=== PATIENT | male | born 1950 | race Caucasian/White ===

== ENCOUNTER 2020-03-19 08:32 | Outpatient (CLI) | payer MEDICARE, OTHER, SELFPAY ==
--- NOTE | ~2020-03-19 | CT_ITS ---
EXAMINATION: CT abdomen pelvis w con DATE: 03/19/2020 09:22 INDICATION: Malignant prostate neoplasm TECHNIQUE: Computed tomography (CT) of the abdomen and pelvis was performed without intravenous contr ast. Automated exposure control and iterative reconstruction technique were employed. Exam dose: 516 .58 mGy-cm total exam DLP. COMPARISON: None. FINDINGS: Bilateral lower lobe discoid atelectasis and/or scarring. No consolidation at the lung base s. Coronary artery atherosclerosis. Heart size is within normal range. No pericardial or pleural effusio n. There are scattered occasional very small hepatic hypoattenuating lesions, statistically most likely small hepatic cysts. The liver, gallbladder, bile duct, spleen, pancreas and pancreatic duct are othe rwise unremarkable. Normal morphology of the adrenal glands. Approximately 8 mm lower pole right renal cyst. No urinary tract calculus or hydroureteronephrosis. There is extensive atherosclerotic calcification of the abdominal aorta but no aneurysm. There is pro minent calcification of the iliac arteries as well as femoral artery calcifications. No intraperitoneal or retroperitoneal or pelvic mass lesion or adenopathy or ascites. There is prostate enlargement and calcification. The urinary bladder is distended. Normal appendix. There are numerous diverticula of the left colon; no CT evidence of diverticulitis. There is a prominent amount fecal material within the colon but no bowel obstruction or intraperitone al free air. Diffuse idiopathic skeletal hyperostosis of the lower thoracic spine. Diffuse osteopenia. No suspicious osteolytic or osteoblastic lesions are identified. . IMPRESSION: Bilateral lower lobe discoid atelectasis and/or scarring Probable small hepatic cysts 8 mm lower pole right renal cyst Prostate enlargement and calcification Diverticulosis of the colon Prostate enlargement and calcifications; history of prostate cancer. No osteoblastic metastatic disea se or pelvic or abdominal lymphadenopathy is noted Reviewed, dictated and finalized at [facility]. Reviewed, dictated and finalized at location A. IMPRESSION: Bilateral lower lobe discoid atelectasis and/or scarring Probable small hepatic cysts 8 mm lower pole right renal cyst Prostate enlargement and calcification Diverticulosis of the colon Prostate enlargement and calcifications; history of prostate cancer. No osteobl astic metastatic disease or pelvic or abdominal lymphadenopathy is noted
--- NOTE | ~2020-03-19 | NM_ITS ---
EXAMINATION: NM bone scan whole body DATE: 03/19/2020 13:08 INDICATION: Malignant neoplasm of the prostate TECHNIQUE: 25.2 mCi Tc-99m HDP was administered intravenously. Delayed whole-body scintigrams were o btained. COMPARISON: Chest radiograph and CT abdomen and pelvis dated 03/19/2020 FINDINGS: Mild joint centered uptake at the bilateral acromioclavicular and sternoclavicular joints as well as at the knees. The dose of mild increased uptake at the inferior sternocostal margin with correspondin g mild hypertrophic change at this location on the CT images. No suspicious foci of abnormal bone upt emelina to suggest osseous metastatic disease. Large amount of postvoid residual activity in the bladder. IMPRESSION: 1. No evident osseous metastatic disease. 2. Large post void residual bladder volume. Reviewed, dictated and finalized at location A.
--- NOTE | ~2020-03-19 | XR_ITS ---
XR chest 2V DATE: 03/19/2020 09:01 INDICATION: Malignant neoplasm of prostate gland TECHNIQUE: PA and lateral views COMPARISON: 07/11/2005 PA and lateral chest FINDINGS: Normal heart size. Aortic calcification. No hilar or mediastinal enlargement. Moderate bilateral hyperinflation. No pulmonary infiltrate or consolidation is evident. An approximat halima 2.5 cm mass density is suggested in the right apex, new since 07/21/2005; CT thorax is recommended for further evaluation for possible right apical pulmonary malignancy. Normal heart size. Aortic arch calcification. No hilar or mediastinal enlargement is evident. No pleu ral effusion or pulmonary vascular congestion or pneumothorax. Diffuse osteopenia. Degenerative changes of the thoracic spine. IMPRESSION: Approximately 2.5 cm right apical mass density, suggesting possible right apical pulmonar y malignancy; CT thorax examination is recommended. Dr. Ordaz telephoned the chest radiograph findings, including right apical mass density suggesting cristine g [facility] office on March 19, 2020 at 0910 hours. Reviewed, dictated and finalized at location A. IMPRESSION: Approximately 2.5 cm right apical mass density, suggesting possible right apical pulmonary malignancy; CT thorax examination is recommended. Dr. Ordaz telephoned the chest radiograph findings, including right apical mass density [facility] lung [facility] office on March 19, 2020 at 0910 hours.
[2020-03-19 09:11] LABS: Estimated Glomerular Filt Rate > 60
== END 2020-03-19 08:33 | disposition home or self-care (01) ==
PROVIDERS: PCP Family Medicine; Visit Provider Urology
DX: C61 Malignant neoplasm of prostate (principal); R91.8 Other nonspecific abnormal finding of lung field; N28.1 Cyst of kidney, acquired; N40.0 Benign prostatic hyperplasia without lower urinary tract symptoms; K57.90 Diverticulosis of intestine, part unspecified, without perforation or abscess without bleeding
CPT/HCPCS: 36415; 71046; 74177; 78306; A9561; Q9967

== ENCOUNTER 2020-04-05 10:09 | Outpatient (CLI) | payer MEDICARE, OTHER, SELFPAY ==
--- NOTE | ~2020-04-05 | CT_ITS ---
EXAMINATION: CT chest wo con DATE: 04/05/2020 10:41 INDICATION: ABNORMALITY OF LUNG ON CXR TECHNIQUE: Computed tomography (CT) of the chest was performed without intravenous contrast. Addition al 3D reconstructions utilizing coronal maximum intensity projection (MIP) were performed. Automated exposure control and iterative reconstruction technique were employed. The dose-length product was 21 5.35 mGy-cm. COMPARISON: Chest radiograph dated 03/19/2020 FINDINGS: Mild to moderate emphysema. There is a 3.4 x 2.4 x 1.5 cm pleural-based mass at the right apex corres ponding to the opacity on the prior radiographs which is concerning for malignancy. Linear discoid at electasis/scarring in the bilateral lower lobes. Suture line at the posterolateral margin of the righ t apex. No pneumonia, pulmonary edema or pleural effusion. Heart size is normal. Atherosclerotic sophia nary artery calcifications no pericardial effusion. Calcified right hilar lymph nodes consistent with old granulomatous disease. No pathologically enlarged thoracic lymphadenopathy. Atherosclerotic calc ifications along the normal caliber thoracic aorta. Mild bilateral gynecomastia. There are bridging o steophytes at multiple levels in the spine, consistent with diffuse idiopathic skeletal hyperostosis (DISH). IMPRESSION: 1. 3.4 x 2.4 x 1.5 cm pleural-based mass at the right apex which is concerning for malignancy. Given the presence of an adjacent suture line the differential would also include pleural-parenchymal scarr ing. Recommend correlation with any prior outside imaging. Could consider either further evaluation w ith PET/CT or CT-guided percutaneous biopsy. 2. Mild to moderate emphysema. Reviewed, dictated and finalized at location A. IMPRESSION: 1. 3.4 x 2.4 x 1.5 cm pleural-based mass at the right apex which is concerning for malignancy. Given the presence of an adjacent suture line the differential would also include pleural-parenchymal scarring. Recommend correlation with any prior outside imaging. Could consider either further evaluation with PET/CT or CT-guided percutaneous biopsy. 2. Mild to moderate emphysema.
== END 2020-04-05 10:10 | disposition home or self-care (01) ==
PROVIDERS: PCP Family Medicine; Visit Provider Urology
DX: R91.8 Other nonspecific abnormal finding of lung field (principal); J43.9 Emphysema, unspecified
CPT/HCPCS: 71250

== ENCOUNTER 2020-04-26 08:59 | Outpatient (CLI) | payer MEDICARE, OTHER, SELFPAY ==
[2020-04-19 11:28] VITALS: BMI 23.7
[2020-04-26] VITALS (11 sets, daily range): BP systolic 122–146; BP diastolic 57–74; PULSE 49–59; RESP 12–18; O2SAT 96–100
--- NOTE | ~2020-04-26 | XR_ITS ---
EXAMINATION: XR chest 1V DATE: 04/26/2020 11:56 INDICATION: Status post percutaneous biopsy of a right apical mass. TECHNIQUE: frontal and lateral views of the chest were obtained. COMPARISON: Chest radiograph dated 03/19/2020 FINDINGS: Again seen is a mass at the right apex which remains concerning for malignancy. No other airspace opa cities, pulmonary edema, pleural effusion or pneumothorax. The cardiomediastinal silhouette is normal . IMPRESSION: 1. No pneumothorax or other acute cardiopulmonary disease post biopsy of a right apical mass concerni ng for malignancy. Reviewed, dictated and finalized at location A. IMPRESSION: 1. No pneumothorax or other acute cardiopulmonary disease post biopsy of a righ t apical mass concerning for malignancy.
--- NOTE | ~2020-04-26 | CT_ITS ---
EXAMINATION: CT biopsy lung DATE: 04/26/2020 12:10 INDICATION: Right apical mass. TECHNIQUE: The procedure including the risks and benefits was discussed with the patient. Risks discu ssed included infection, approximately 1/20 risk of symptomatic hemorrhage beyond mild hemoptysis, ap proximately 1/3 risk of pneumothorax, and approximately 1/10 risk of pneumothorax severe enough to wa rrant chest tube placement. The patient understood the risks and agreed to proceed. The patient was p laced prone. The skin overlying the posterior right apex was prepped and draped in sterile fashion. Anesthetic was administered with 1% lidocaine subcutaneously. A 19 gauge outer needle was advanced under CT guidance to the lesion of interest. A 20 gauge core biopsy needle was then used to obtain 4 core biopsy specimens. The needle was removed and the entry site was cleaned and dressed. There were no immediate complications. The dose-length product was 156.63 mGy-cm. FINDINGS: CT images demonstrate the outer needle tip adjacent to a 3.3 x 2.0 cm mass at the right ape x. . IMPRESSION: 1. Successful CT-guided biopsy of a 3.3 x 2.0 cm right apical mass. Reviewed, dictated and finalized at location A.
--- NOTE | ~2020-04-26 | XR_ITS ---
EXAMINATION: XR chest 1V portable DATE: 04/26/2020 12:51 INDICATION: One hour post percutaneous biopsy of a right apical mass. TECHNIQUE: frontal view of the chest was obtained. COMPARISON: Chest radiograph dated 04/26/2020 at 11:53 AM FINDINGS: Right apical mass which remains concerning for malignancy. No other airspace opacities, pulmonary brandi ma, pleural effusion or pneumothorax. The cardiomediastinal silhouette is normal. Likely coronary art kaylan stenting. IMPRESSION: 1. No pneumothorax or other acute cardiopulmonary disease post biopsy of a right apical mass which re ray concerning for malignancy. Reviewed, dictated and finalized at location A. IMPRESSION: 1. No pneumothorax or other acute cardiopulmonary disease post biopsy of a righ t apical mass which remains concerning for malignancy.
--- NOTE | ~2020-04-26 | XR_ITS ---
EXAMINATION: XR chest 1V portable DATE: 04/26/2020 14:51 INDICATION: Status post percutaneous biopsy of a right upper lobe nodule. TECHNIQUE: frontal view of the chest was obtained. COMPARISON: Chest radiograph dated earlier studies on 04/26/2020 FINDINGS: Again seen is a right apical mass concerning for primary bronchogenic carcinoma. No new airspace opac ities, pulmonary edema, pleural effusion or pneumothorax. The cardiomediastinal silhouette is normal. Likely coronary artery stenting. IMPRESSION: 1. No pneumothorax or other acute cardiopulmonary disease post biopsy of a right apical mass which re ray concerning for primary bronchogenic carcinoma. Reviewed, dictated and finalized at location A. IMPRESSION: 1. No pneumothorax or other acute cardiopulmonary disease post biopsy of a righ t apical mass which remains concerning for primary bronchogenic carcinoma.
[2020-04-26 09:34] LABS: Mean Platelet Volume 10.4 fl (7.4-10.4); Platelet Count Result 194 k/mm3 (150-375)
[2020-04-26 09:47] LABS: Prothrombin Time 12.9 Seconds (11.1-14.7)
== END 2020-04-26 15:25 | disposition home or self-care (01) ==
PROVIDERS: Radiology Diagnostic Radiology; PCP Family Medicine; Visit Provider Urology
DX: R91.1 Solitary pulmonary nodule (principal)
CPT/HCPCS: 32405; 36415; 71045; 77012; 85049; 85610; 88305; 88342

== ENCOUNTER → 2020-05-14 12:16 | Outpatient (CLI) | payer MEDICARE, OTHER, SELFPAY ==
--- NOTE | ~2020-05-14 | MR_ITS ---
EXAMINATION: MR brain/brain stem wo/w con DATE: 05/14/2020 13:06 INDICATION: Malignant neoplasm of the upper lobe of right lung. TECHNIQUE: Magnetic resonance imaging (MRI) of the brain and brainstem was performed without and with 15 mL MultiHance intravenous contrast. Sequences included sagittal and axial T1-weighted FSE, axial diffusion-weighted FS EPI, axial T2*-weighted GRE, axial T2-weighted FLAIR Propeller, and axial T2-we ighted Propeller. Postcontrast sequences included axial, sagittal, and coronal T1-weighted FSE. Appar ent diffusion coefficient (ADC) maps were created. COMPARISON: None. FINDINGS: There are scattered areas of nonspecific increased T2-weighted signal intensity in the cere bral white matter, which is within normal limits for the patient's age. There is no intracranial hemo rrhage, acute infarction, or abnormal intracranial mass lesion. The ventricles are normal in size. Th e orbits are normal. There is mild mucosal thickening in the ethmoid sinuses. There is a trace left m astoid effusion. IMPRESSION: 1. Normal aging brain. No evidence of metastatic disease. Reviewed, dictated and finalized at location A.
[2020-05-14 12:49] LABS: Estimated Glomerular Filt Rate > 60
== END ==
PROVIDERS: PCP Family Medicine; Visit Provider Internal Medicine Medical Oncology
DX: C34.11 Malignant neoplasm of upper lobe, right bronchus or lung (principal)
CPT/HCPCS: 36415; 70553; A9577

== ENCOUNTER 2020-08-16 09:56 | Outpatient (CLI) | payer MEDICARE, OTHER, SELFPAY ==
--- NOTE | ~2020-08-16 | CT_ITS ---
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 The dose-length product (DLP) was 209.80 mGy-cm. Ite rative reconstruction was used. COMPARISON: 04/05/2020 FINDINGS: There has been interval decrease in size of a right apical lung mass which now measures 2.1 x 1.5 cm, previously 3.4 x 2.1 cm. There is mild to moderate emphysema. No new pulmonary nodules are identified. There is no pleural effusion or pneumothorax. There is atelectasis of the lower lobes. N o pathologically enlarged thoracic lymph nodes are identified. The heart size is normal. Mild bilater al gynecomastia is noted. There are bridging osteophytes at multiple levels in the spine, consistent with diffuse idiopathic skeletal hyperostosis (DISH). IMPRESSION: 1. Right apical lung mass with interval decrease in size, consistent with treatment response. Reviewed, dictated and finalized at location A. IMPRESSION: 1. Right apical lung mass with interval decrease in size, consistent with treat ment response.
[2020-08-16 10:31] LABS: Estimated Glomerular Filt Rate > 60
== END 2020-08-16 09:57 | disposition home or self-care (01) ==
PROVIDERS: PCP Family Medicine; Visit Provider Internal Medicine Medical Oncology
DX: C34.11 Malignant neoplasm of upper lobe, right bronchus or lung (principal)
CPT/HCPCS: 71260; Q9967

== ENCOUNTER 2020-11-12 10:02 | Outpatient (CLI) | payer MEDICARE, OTHER, SELFPAY ==
--- NOTE | ~2020-11-12 | CT_ITS ---
EXAMINATION: CT chest w con DATE: 11/12/2020 10:37 INDICATION: Malignant neoplasm of the right lung TECHNIQUE: Transaxial computed tomographic images of the chest were obtained after the administration of 75 cc of Omnipaque 350 intravenous contrast. The dose-length product (DLP) was 08/16/2020 mGy-cm. Iterative reconstruction was used. COMPARISON: 08/16/2020 FINDINGS: The previously described right apical lung nodule is somewhat difficult to discriminate fro m apical pleural thickening but appears to decreased in size measuring approximately 1.8 x 1.3 cm, pr eviously 2.1 x 1.5 cm. No new pulmonary nodules are identified. There is no pleural effusion or pneum othorax. There is moderate emphysema. Areas of chronic atelectasis are noted in the lower lobes. The lungs are free of acute opacities. There is no pleural effusion or pneumothorax. No pathologically en larged thoracic lymph nodes are identified. The heart size is normal. There is mild bilateral gynecom astia. IMPRESSION: 1. Right apical lung nodule with apparent interval decrease in size, consistent with treatment respon se. Reviewed, dictated and finalized at location A. 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 Right apical lung nodule with apparent interval decrease in size, consistent with treatment response.
[2020-11-12 10:28] LABS: Estimated Glomerular Filt Rate > 60
== END 2020-11-12 10:03 | disposition home or self-care (01) ==
PROVIDERS: PCP Family Medicine; Visit Provider Internal Medicine Medical Oncology
DX: C34.11 Malignant neoplasm of upper lobe, right bronchus or lung (principal)
CPT/HCPCS: 71260; Q9967

== ENCOUNTER → 2020-11-21 10:20 | Outpatient (CLI) | payer MEDICARE, OTHER, SELFPAY ==
--- NOTE | ~2020-11-21 | MR_ITS ---
EXAMINATION: MR brain/brain stem wo/w con DATE: 11/21/2020 11:15 INDICATION: Lung cancer. TECHNIQUE: Magnetic resonance imaging (MRI) of the brain and brainstem was performed without and with 15 mL MultiHance intravenous contrast. Sequences included sagittal and axial T1-weighted FSE, axial diffusion-weighted FS EPI, axial T2*-weighted GRE, axial T2-weighted FLAIR Propeller, and axial T2-we ighted Propeller. Postcontrast sequences included axial, sagittal, and coronal T1-weighted FSE. Appar ent diffusion coefficient (ADC) maps were created. COMPARISON: Brain MRI 05/14/2020 FINDINGS: There are scattered areas of nonspecific increased T2-weighted signal intensity in the cere bral white matter, which is within normal limits for the patient's age. 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 There is no intracranial hemorrhage, acute infarction, or abnormal intracranial m ass lesion. The ventricles are normal in size. The orbits are normal. There is mild mucosal thickenin g in the ethmoid sinuses. The mastoid air cells are normal. IMPRESSION: 1. Small old infarct in left cerebellum. Reviewed, dictated and finalized at location B. 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
[2020-11-21 10:49] LABS: Estimated Glomerular Filt Rate > 60
== END ==
PROVIDERS: PCP Family Medicine
DX: C34.11 Malignant neoplasm of upper lobe, right bronchus or lung (principal); Z79.899 Other long term (current) drug therapy; R93.0 Abnormal findings on diagnostic imaging of skull and head, not elsewhere classified
CPT/HCPCS: 70553; A9577

== ENCOUNTER 2021-02-11 07:02 | Outpatient (CLI) | payer MEDICARE, OTHER, SELFPAY ==
--- NOTE | ~2021-02-11 | CT_ITS ---
EXAMINATION: CT diagnostic chest w con EXAM DATE: 02/11/2021 07:33 INDICATION: Lung cancer follow-up restaging. Right side. TECHNIQUE: Spiral CT of the chest following intravenous injection of 75 mL Omnipaque 350. Axial, cor onal and sagittal images were reviewed. Coronal maximum intensity pixel images of chest reviewed. T catalina dose-length product (DLP) for this examination was 285.62 mGy-cm. The exposure was tailored accor ding to patient size (auto mA exposure control), and iterative reconstruction (ASIR) was used as roshni tional dose reduction technique. Comparison is made to prior examination from 11/12/2020. FINDINGS: Right apical nodule and pleural thickening are stable measuring about 1 x 2 cm. No new pul monary nodules. Basilar atelectasis/scarring is unchanged. There are no pleural or pericardial effusi ons. Tracheobronchial tree is patent. There is mild to moderate emphysema. There is no mediastinal, hilar or axillary lymphadenopathy. There is no pneumothorax. Heart normal in size. There are dense coronary arteries, could be severe coronary arterial sclerosis and/or coronary artery stent(s), which are difficult to distinguish due to cardiac motion on this non-gated exam. Correlate with cardiac history and consider cardiology consult if not recently evaluated. Upper abdomen is un remarkable. There is thoracic spondylosis without osteoblastic or osteolytic lesions identified. IMPRESSION: 1. Stable right apical pleural-based malignancy. 2. Chronic basilar atelectasis or scarring. 3. Mild to moderate emphysema. 4. Dense coronary artery calcifications and/or stents. Reviewed, dictated and finalized at location A.
== END 2021-02-11 07:03 | disposition home or self-care (01) ==
PROVIDERS: PCP Family Medicine; Visit Provider Internal Medicine Medical Oncology
DX: C61 Malignant neoplasm of prostate (principal); J43.9 Emphysema, unspecified
CPT/HCPCS: 71260; Q9967

== ENCOUNTER 2021-05-13 07:27 | Outpatient (CLI) | payer MEDICARE, OTHER, SELFPAY ==
--- NOTE | ~2021-05-13 | CT_ITS ---
EXAMINATION: CT diagnostic chest w con EXAM DATE: 05/13/2021 08:20 INDICATION: Malignant neoplasm of upper lobe of RT lung. Follow-up. Prostate cancer. TECHNIQUE: Spiral CT of the chest following intravenous injection of 75 mL Omnipaque 350. Axial, cor onal and sagittal images of the chest were reviewed. Coronal maximum intensity pixel images of chest reviewed. The dose-length product (DLP) for this examination was 375.87 mGy-cm. The exposure was t ailored according to patient size (auto mA exposure control), and iterative reconstruction (ASIR) was used as additional dose reduction technique. Comparison is made to prior examination from 02/11/2021. FINDINGS: Right apical scarring, possible partial pneumonectomy stable. Linear bibasilar scarring/chr onic atelectasis. There is moderate emphysema and mild hyperinflation. There are no pleural or peric ardial effusions. Tracheobronchial tree is patent. There is no mediastinal, hilar or axillary lym phadenopathy. There is no pneumothorax. Heart normal in size. There are likely coronary arteria l stent or stents. Correlate with prior cardiac history. Upper abdomen is unremarkable. Patient delgado s diffuse idiopathic skeletal hyperostosis (DISH). IMPRESSION: 1. Stable right apical treatment related change. 2. Bibasilar scarring/atelectasis. 3. Moderate emphysema. Mild hyperinflation. Reviewed, dictated and finalized at location A.
[2021-05-13 08:00] LABS: Estimated Glomerular Filt Rate > 60
== END 2021-05-13 07:28 | disposition home or self-care (01) ==
PROVIDERS: PCP Family Medicine; Visit Provider Internal Medicine Medical Oncology
DX: C34.11 Malignant neoplasm of upper lobe, right bronchus or lung (principal); R91.8 Other nonspecific abnormal finding of lung field; J43.9 Emphysema, unspecified
CPT/HCPCS: 71260; Q9967

== ENCOUNTER 2021-09-09 07:36 | Outpatient (CLI) | payer MEDICARE, OTHER, SELFPAY ==
--- NOTE | ~2021-09-09 | CT_ITS ---
EXAMINATION: CT diagnostic chest w con DATE: 09/09/2021 08:16 INDICATION: Malignant neoplasm of the right upper lobe, follow up TECHNIQUE: Transaxial computed tomographic images of the chest were obtained after the administration of 75 cc of Omnipaque 350 intravenous contrast. The dose-length product (DLP) was 199.19 mGy-cm. Ite rative reconstruction was used. COMPARISON: 05/13/2021 FINDINGS: There is moderate emphysema. There are changes of right partial pneumonectomy. There is mil d dependent atelectasis. No pleural effusion or pneumothorax is identified. No pathologically enlarge d thoracic lymph nodes are identified. The heart size is normal. Calcified coronary artery atheroscle rosis is noted. There are bridging osteophytes at multiple levels in the spine, consistent with diffu se idiopathic skeletal hyperostosis (DISH). IMPRESSION: 1. Changes of right partial pneumonectomy without residual or recurrent disease. 2. Moderate emphysema. Reviewed, dictated and finalized at location B. 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 Changes of right partial pneumonectomy without residual or recurrent disease . 2. Moderate emphysema.
[2021-09-09 08:10] LABS: Estimated Glomerular Filt Rate > 60
== END 2021-09-09 07:37 | disposition home or self-care (01) ==
LOC: ANHIMG 07:41
PROVIDERS: PCP Family Medicine; Visit Provider Internal Medicine Medical Oncology
DX: C34.11 Malignant neoplasm of upper lobe, right bronchus or lung (principal); J43.9 Emphysema, unspecified; Z90.2 Acquired absence of lung [part of]
CPT/HCPCS: 71260; Q9967

== ENCOUNTER 2022-03-10 06:33 | Outpatient (CLI) | payer MEDICARE, OTHER, SELFPAY ==
--- NOTE | ~2022-03-10 | CT_ITS ---
EXAMINATION: CT diagnostic chest w con DATE: 03/10/2022 07:13 INDICATION: Right lung cancer TECHNIQUE: Transaxial computed tomographic images of the chest were obtained after the administration of 75 cc of Omnipaque 300 intravenous contrast. The dose-length product (DLP) was 186.83 mGy-cm. Ite rative reconstruction was used. COMPARISON: 09/09/2021 FINDINGS: There are changes of right partial pneumonectomy. Moderate emphysema is noted. There are no new airspace opacities or nodules. There is chronic atelectasis of the lower lobes. There is no pleu ral effusion or pneumothorax. No pathologically enlarged thoracic lymph nodes are identified. The hea rt size is normal. Calcified coronary artery atherosclerosis is noted. There are bridging osteophytes at multiple levels in the spine, consistent with diffuse idiopathic skeletal hyperostosis (DISH). IMPRESSION: 1. Stable changes of right partial pneumonectomy without residual or recurrent disease. 2. Moderate emphysema. Reviewed, dictated and finalized at location A.
[2022-03-10 07:10] LABS: Estimated Glomerular Filt Rate > 60
== END 2022-03-10 06:34 | disposition home or self-care (01) ==
PROVIDERS: PCP Family Medicine; Visit Provider Internal Medicine Medical Oncology
DX: C34.11 Malignant neoplasm of upper lobe, right bronchus or lung (principal); J43.9 Emphysema, unspecified
CPT/HCPCS: 71260; Q9967

== ENCOUNTER → 2022-07-09 09:48 | Outpatient (CLI) | payer MEDICARE, OTHER, SELFPAY ==
--- NOTE | ~2022-07-09 | US_ITS ---
EXAMINATION: US abdomen complete DATE: 07/09/2022 10:24 INDICATION: R14.0 - Abdominal distension (gaseous) TECHNIQUE: Multiple grayscale and Doppler ultrasound images of the abdomen were obtained. COMPARISON: CT abdomen and pelvis 03/19/2020. FINDINGS: Exam somewhat limited by bowel gas. The visualized portions of the pancreas are normal. The liver is normal with normal echogenicity and echotexture. No surface nodularity. Normal hepatopetal flow in the main portal vein. The gallbladder is normal with no abnormal wall thickening, pericholecy stic fluid or stones. The common bile duct measures 8 mm. There was no sonographic Osorio sign. The v isualized portions of the aorta and inferior vena cava are normal, save for the presence of atheroscl erotic disease. The right kidney measures 11.6 x 4.7 x 5.8. The left kidney measures 11.7 x 6.7 x 5.2. The kidneys de monstrate normal parenchymal echogenicity. There is no hydronephrosis. The spleen is normal in appear ance and measures 9.3 cm. IMPRESSION: Exam mildly limited by bowel gas. Atherosclerotic disease in the abdominal aorta. Otherwise unremarka ble abdominal ultrasound findings. Reviewed, dictated and finalized at location K. IMPRESSION: Exam mildly limited by bowel gas. Atherosclerotic disease in the abdominal aort a. Otherwise unremarkable abdominal ultrasound findings.
== END ==
PROVIDERS: PCP Family Medicine; Visit Provider Nurse Practitioner
DX: R14.0 Abdominal distension (gaseous) (principal)
CPT/HCPCS: 76700

== ENCOUNTER 2022-08-05 09:19 | Outpatient (CLI) | payer MEDICARE, OTHER, SELFPAY ==
--- NOTE | 2022-08-05 11:30 | NEURO_ITS ---
Impression: # Complains of right lower extremity numbness and weakness. # Normal motor and sensory nerve conduction study including F-waves. # Normal needle/EMG exam. # Clinical correlation recommended. Nerve Conduction Studies Anti Sensory Summary Table Stim Site NR Peak (ms) P-T Amp (?V) Site1 Site2 Delta-P (ms) Dist (cm) Matt (m/s) Right Sup Fibular Anti Sensory (Ant Lat Mall) 14 cm 3.1 23.3 14 cm Ant Lat Mall 3.1 16.0 52 Right Sural Anti Sensory (Lat Mall) Calf 3.6 23.0 Calf Lat Mall 3.6 16.0 44 Motor Summary Table Stim Site NR Onset (ms) O-P Amp (mV) Site1 Site2 Delta-0 (ms) Dist (cm) Matt (m/s) Right Peroneal Motor (Vastus Med) Ankle 4.2 2.2 Popit Ankle 9.3 42.0 45 Popit 13.5 2.6 Right Tibial Motor (Abd Cadena Brev) Ankle 4.8 2.8 Knee Ankle 10.7 45.0 42 Knee 15.5 2.0 F Wave Studies NR F-Lat (ms) L-R F-Lat (ms) Right Peroneal (Mrkrs) (EDB) 58.11 Right Tibial (Mrkrs) (Abd Hallucis) 58.49 EMG Side Muscle Nerve Root Ins Act Fibs Amp Dur Recrt Comment Right AntTibialis Dp Br Fibular L4-5 Nml Nml Nml Nml Nml Right Gastroc Tibial S1-2 Nml Nml Nml Nml Nml Right Fibularis Long Sup Br Fibular L5-S1 Nml Nml Nml Nml Nml Right Flex Dig Long Tibial L5-S2 Nml Nml Nml Nml Nml Right Ext Dig Brev Dp Br Fibular L5, S1 Nml Nml Nml Nml Nml Right ExtHallLong Dp Br Fibular L5, S1 Nml Nml Nml Nml Nml Right Ext Dig Long Dp Br Fibular L5-S1 Nml Nml Nml Nml Nml MTDD
== END 2022-08-05 09:20 | disposition home or self-care (01) ==
PROVIDERS: PCP Family Medicine; Visit Provider Family Medicine
DX: R20.2 Paresthesia of skin (principal)
CPT/HCPCS: 95886; 95908

== ENCOUNTER 2022-08-18 07:40 | Outpatient (CLI) | payer MEDICARE, OTHER, SELFPAY ==
--- NOTE | ~2022-08-18 | DEXA_ITS ---
Bone Density Report Name: KAVON CARDONA Age: 71 Sex: Male Ethnicity: White Date of : 1950 Indication: screening for osteoporosis; cancer; Referring Provider: NUNU BENSON Study: Bone densitometry was performed. Exam Date: August 18, 2022 Accession number: [id number] Bone Density: Region BMD T-score Z-score Classification AP Spine(L1-L4) 1.028 -0.6 0.4 Normal Femoral Neck (Left) 0.615 -2.3 -1.0 Osteopenia Total Hip (Left) 0.797 -1.6 -0.8 Osteopenia Femoral Neck (Right) 0.635 -2.2 -0.9 Osteopenia Total Hip (Right) 0.779 -1.7 -0.9 Osteopenia Total Hip Mean 0.788 -1.7 -0.9 Osteopenia World Health Organization criteria for BMD impression classify patients as: Normal (T-score at or above -1.0), Osteopenia (T-score between -1.0 and -2.5), or Osteoporosis (T-score at or below -2.5). 10-year Fracture Risk(1): Major Osteoporotic Fracture 10% Hip Fracture 5.2% Reported Risk Factors: [place] (), Neck BMD=0.615, BMI=26.0, smoking (1) FRAX(R) Version 3.08. Fracture probability calculated for an untreated patient. Fracture probability may be lower if the patient has received treatment. Clinical Information Provided by Patient: Smokes Has used the following medications: Vitamin D, Calcium Has the following medical conditions: Cancer Patient maximum height was 73 No regular weight bearing exercise Drinks caffeinated beverages Impression: The patient has low bone mass, based on the Left Femoral Neck T-score. The patient has an estimated ten-year risk of hip fracture of 5.2% and an estimated ten-year risk of major fracture of 10%, based on the WHO FRAX algorithm. The patient has risk factors, including: smoking. Discussion: BONE DENSITY IS LOW AT ONE OR MORE SKELETAL SITES. THE PATIENT'S BMD AND CLINICAL RISK FACTORS CONTRIBUTE TO THIS PATIENT'S INCREASED RISK OF FRACTURE. This patient's lowest T-score is low at one or more skeletal sites. It meets the World Health Organization's (WHO) criteria for ?low bone mass? (T-score between -1.0 and -2.5). The patient's 10-year risk of hip fracture as calculated by FRAX exceeds the threshold where pharmacological therapy is recommended by the National Osteoporosis Foundation (NOF). However, all treatment decisions require clinical judgment and consideration of individual patient factors, including patient preferences, comorbidities, previous drug use, risk factors not captured in the FRAX model (e.g., frailty, falls, vitamin D deficiency, increased bone turnover, interval significant decline in bone density) and possible under or overestimation of fracture risk by FRAX. The patient should follow a healthful lifestyle (good nutrition with adequate calcium and vitamin D, and appropriate weight-bearing exercise). Follow-Up: Consider re
== END 2022-08-18 07:41 | disposition home or self-care (01) ==
LOC: ANHIMG 07:42
PROVIDERS: PCP Family Medicine; Visit Provider Nurse Practitioner Adult Health
DX: M85.88 Other specified disorders of bone density and structure, other site (principal); M85.852 Other specified disorders of bone density and structure, left thigh; M85.851 Other specified disorders of bone density and structure, right thigh
CPT/HCPCS: 77080

== ENCOUNTER 2022-09-11 07:50 | Outpatient (CLI) | payer MEDICARE, OTHER, SELFPAY ==
--- NOTE | ~2022-09-11 | CT_ITS ---
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 The dose-length product (DLP) was 207.26 mGy-cm. Ite rative reconstruction was used. COMPARISON: 03/10/2022 FINDINGS: There is moderate emphysema. Changes of right partial pneumonectomy are again noted. There is stable scarring at the right lung apex. Chronic atelectasis is noted in the lower lobes. The lungs are free of acute opacities. No pleural effusion or pneumothorax. No new pulmonary nodules are ident ified. No pathologically enlarged thoracic lymph nodes are identified. The heart size is normal. Ther e are bridging osteophytes at multiple levels in the spine, consistent with diffuse idiopathic skelet al hyperostosis (DISH). There is a small sliding hiatal hernia. IMPRESSION: 1. Changes of partial right pneumonectomy without residual or recurrent disease. 2. Moderate emphysema. Reviewed, dictated and finalized at location B. EGLASS LAMINATOR IMPRESSION: 1. Changes of partial right pneumonectomy without residual or recurrent disease . 2. Moderate emphysema.
== END 2022-09-11 07:51 | disposition home or self-care (01) ==
PROVIDERS: PCP Family Medicine; Visit Provider Internal Medicine Medical Oncology
DX: C34.11 Malignant neoplasm of upper lobe, right bronchus or lung (principal); J43.9 Emphysema, unspecified
CPT/HCPCS: 71260; Q9967

== ENCOUNTER 2023-03-12 06:35 | Outpatient (CLI) | payer MEDICARE, OTHER, SELFPAY ==
--- NOTE | ~2023-03-12 | CT_ITS ---
Clinical Indication: Lung cancer CT Scan of the Chest with Contrast: Technique: Contiguous sections were acquired throughout the chest after intravenous administration of 75 cc of Omnipaque 350. Dose reduction technique was used on this scan by utilizing automated exposu re control and iterative reconstruction technique. The dose-length product (DLP) was 156.69 mGy-cm. COMPARISON: 09/11/2022 Findings: There is no evidence of any significant mediastinal, hilar or axillary lymphadenopathy. Extensive cor onary artery calcification are present. There is no evidence of aortic dissection or aneurysm. There is no evidence of pleural or pericardial effusion. There is mild emphysema. There is bibasilar scarring or atelectatic change. There is pleural thickeni ng at the lung apices, and possible post therapy change at the right lung apex. Images through the upper abdomen reveal no abnormalities. Impression: No evidence for active malignancy or metastatic disease. No change from prior exam. Mild emphysema with probable post therapy/postoperative changes at the right lung apex. Bibasilar pulmonary scarring or atelectasis. Reviewed, dictated and finalized at location . Impression: No evidence for active malignancy or metastatic disease. No change from prior e xam. Mild emphysema with probable post therapy/postoperative changes at the right talon ng apex. Bibasilar pulmonary scarring or atelectasis.
== END 2023-03-12 06:36 | disposition home or self-care (01) ==
PROVIDERS: PCP Family Medicine; Visit Provider Internal Medicine Medical Oncology
DX: C34.11 Malignant neoplasm of upper lobe, right bronchus or lung (principal); J43.9 Emphysema, unspecified
CPT/HCPCS: 71260; Q9967

== ENCOUNTER 2023-08-11 15:20 | Outpatient (CLI) | payer MEDICARE, OTHER, SELFPAY ==
--- NOTE | ~2023-08-11 | US_ITS ---
EXAMINATION: US venous doppler [facility] DATE: 08/11/2023 16:01 INDICATION: Left lower limb pain TECHNIQUE: Eid scale images without and with compression and Doppler images of the left lower extrem ity veins were obtained. COMPARISON: None FINDINGS: The left common femoral vein, profunda femoral vein, femoral vein, popliteal vein, peroneal trunk, posterior tibial veins, and greater saphenous vein are patent. IMPRESSION: 1. Patent left lower extremity veins. No evidence of deep venous thrombosis. Reviewed, dictated and finalized at location F.
== END 2023-08-11 15:21 | disposition home or self-care (01) ==
PROVIDERS: PCP Family Medicine; Visit Provider Nurse Practitioner
DX: M79.605 Pain in left leg (principal)
CPT/HCPCS: 93971

== ENCOUNTER 2023-09-16 08:42 | Outpatient (CLI) | payer MEDICARE, OTHER, SELFPAY ==
--- NOTE | ~2023-09-16 | CT_ITS ---
Clinical Indication: Lung cancer CT Scan of the Chest with Contrast: Technique: Contiguous sections were acquired throughout the chest after intravenous administration of 75 cc of Omnipaque 350. Dose reduction technique was used on this scan by utilizing automated exposu re control and iterative reconstruction technique. The dose-length product (DLP) was 186.63 mGy-cm. COMPARISON: 03/12/2023 Findings: There is no evidence of any significant mediastinal, hilar or axillary lymphadenopathy. There is no f illing defect in the pulmonary arterial tree to suggest pulmonary embolus. There is no evidence of ao rtic dissection or aneurysm. Coronary artery calcifications are present. There is no evidence of pleural or pericardial effusion. There is bilateral upper lobe emphysema. There is bilateral lower lobe chronic scarring or atelectasi s. No suspicious mass or nodule seen. Probable post therapy changes at the right lung apex. Images through the upper abdomen reveal no abnormalities. Impression: No evidence for active malignancy or metastatic disease. No change from prior exam. Stable areas of posttreatment change and atelectasis/scarring. Bilateral upper lobe emphysema. Reviewed, dictated and finalized at location M. RLIES TEACHER Impression: No evidence for active malignancy or metastatic disease. No change from prior e xam. Stable areas of posttreatment change and atelectasis/scarring. Bilateral upper lobe emphysema.
== END 2023-09-16 08:43 | disposition home or self-care (01) ==
PROVIDERS: PCP Family Medicine
DX: C34.11 Malignant neoplasm of upper lobe, right bronchus or lung (principal); J43.9 Emphysema, unspecified
CPT/HCPCS: 71260; Q9967

== ENCOUNTER 2023-12-18 06:46 | Day surgery (SDC) | payer MEDICARE, OTHER, SELFPAY ==
[2023-11-20 13:33] VITALS: BMI 23.8
--- NOTE | 2023-12-16 14:15 | SUR.PREOP ---
Patient called regarding upcoming procedure. Reviewed preop instructions, appointment times, and procedure prep.
[2023-12-18] MEDS: LACTATED RINGERS 1,000 ML 150 ML IV CONT (09:49)
[2023-12-18 09:53] VITALS: BP 149/58; PULSE 74; RESP 20; TEMP 36.5; O2SAT 98; BMI 23.5
--- NOTE | 2023-12-18 10:05 | WPDANESEPPF ---
Anes - Initial Pre Proc Eval Procedure: Operation Date: 12/18/23 10:30 Proposed Procedures p Colonoscopy - Royal Bustillos MD Date/Time: 12/18/23 10:05 Surgeon: Royal Bustillos MD Pre Op Diagnosis: History colon polyps Patient Data Age: 73 Gender: M Height: 1.85 m Weight: 80.9 kg Last Vital Signs Temp 97.7 F 12/18/23 09:53 Pulse 74 12/18/23 09:53 Resp 20 12/18/23 09:53 BP 149/58 H 12/18/23 09:53 Pulse Ox 98 12/18/23 09:53 O2 Del Method Room Air 12/18/23 09:53 Allergies Allergy/AdvReac Type Severity Reaction Status Date / Time No Known Allergies Allergy Verified 12/18/23 09:52 Home Medications Medication Instructions Recorded Confirmed Type aspirin 81 mg tablet,delayed 81 mg PO DAILY 11/25/19 11/20/23 History release finasteride 5 mg tablet 5 mg PO DAILY 11/25/19 11/20/23 History metoprolol succinate 25 mg 25 mg PO DAILY 11/25/19 11/20/23 History tablet,extended release 24 hr nitroglycerin 0.4 mg sublingual 0.4 mg sublingual Q5M PRN Chest 11/25/19 11/20/23 History tablet (Nitrostat) Pain rosuvastatin 20 mg tablet 20 mg PO DAILY 11/25/19 11/20/23 History tadalafil 20 mg tablet 20 mg PO DAILY PRN Sexual Activity 04/19/20 11/20/23 History coQ10 (ubiquinol) 100 mg capsule 100 mg PO BID 06/07/21 11/20/23 History krill 300 mg-omega-3 90 mg-dha 27 1 cap PO DAILY 06/07/21 11/20/23 History mg-epa 45 gw-zckjcmj-wpevtgf capsule magnesium 250 mg tablet 250 mg PO DAILY 06/07/21 11/20/23 History kzbipvrk-hhoirtcq-qohgrpzr 3 1 tablet PO DAILY 06/07/21 11/20/23 History mg-lutein 3 mg-herbal no219 200 mg tablet (PhytoMulti) tamsulosin 0.4 mg capsule 0.4 mg PO DAILY 06/07/21 11/20/23 History vitamin K2 100 mcg capsule 100 mcg PO DAILY 06/07/21 11/20/23 History calcium cit 250 mg-ergocalciferol 1 tablet PO DAILY 08/19/22 11/20/23 History (vit D2) 2.5 mcg (100 unit) tablet bethanechol chloride 25 mg tablet 25 mg PO BID 11/11/23 11/20/23 History Patient hx anesthesia problems: none Family hx anesthesia problems: none Results Review: All pre-operative results and documents have been reviewed as part of the pre-operative evaluation. [facility] Past Medical History Medical History Abrasion (~1963) Atherosclerosis of aorta Broken arm (~1961) Cervical spondylosis Colon polyps Essential (primary) hypertension Hepatitis C antibody test negative (10/02/17) History of nerve impingement (~2009) Mixed hyperlipidemia Multiple vessel coronary artery disease Peripheral vascular disease Prostate cancer (~03/2020) Wears dentures (~2002) Surgical History Surgical History H/O hernia repair (~2015) H/O prostate biopsy (~2019) History of cardiac catheterization (~03/02/12) History of cardiac catheterization (~03/02/13) History of carotid endarterectomy (~12/29/16) History of colonoscopy (~12/13/09) History of lung biopsy (~2019) History of percutaneous transluminal coronary angioplasty (~03/31/12) History of repair of inguinal hernia (~07/03/16) Family History Family History Grandparent Diabetes mellitus Family history of malignant neoplasm Father Family history of elevated blood lipids Carcinoma of colon Family history of lung cancer Other No family history of cardiovascular disease Social History Social History Smoking packs per day: 0.5 Smoking cigarettes per day: 10.0 Years smoked: 60 Smoking pack-years: 30.00 Smoking status: Current every day smoker Tobacco type: cigarettes Alcohol intake: current Alcohol use details: occasional Substance use: never Substance use type: does not use Lack of Transportation: No Lack of Food: Never True Current Housing: I Have Housing Concerned About Future Housing:
--- NOTE | 2023-12-18 10:13 | PM.HPGS ---
History of Present Illness History of Present Illness Consent: Risks, benefits, and alternatives have been discussed and questions answered. Patient agrees to proceed with procedure. Chief complaint: History colon polyps Narrative: Salvador Hameed is a 73 year old male with colon polyp 8 years ago Review of Systems Constitutional: Constitutional: Denies headache(s) and Denies weakness Eyes: Eyes: Denies blurry vision ENT: Reports Normal hearing present, Denies headache(s) and Denies neck pain Cardiovascular: Cardiovascular: Denies chest pain and Denies dyspnea Respiratory: Respiratory: Denies dyspnea Gastrointestinal: Gastrointestinal: Reports no additional gastrointestinal complaints Genitourinary: Genitourinary: Denies dysuria Musculoskeletal: Musculoskeletal: Denies neck pain Integumentary/Breasts: Skin/Breast: Denies dry skin Neurologic: Reports Normal hearing present, Denies headache(s) and Denies weakness Psychiatric: Psychiatric: Denies anxiety Endocrine: Endocrine: Denies change in body appearance Hematologic/Lymphatic: Hematologic/Lymphatic: Denies easy bleeding Allergic/Immunologic: Allergic/Immunologic: Denies urticaria PMFSH Past Medical History Medical History Abrasion (~1963) Atherosclerosis of aorta Broken arm (~1961) Cervical spondylosis Colon polyps Essential (primary) hypertension Hepatitis C antibody test negative (10/02/17) History of nerve impingement (~2009) Mixed hyperlipidemia Multiple vessel coronary artery disease Peripheral vascular disease Prostate cancer (~03/2020) Wears dentures (~2002) Surgical History Surgical History H/O hernia repair (~2015) H/O prostate biopsy (~2019) History of cardiac catheterization (~03/02/12) History of cardiac catheterization (~03/02/13) History of carotid endarterectomy (~12/29/16) History of colonoscopy (~12/13/09) History of lung biopsy (~2019) History of percutaneous transluminal coronary angioplasty (~03/31/12) History of repair of inguinal hernia (~07/03/16) Family History Family History Grandparent Diabetes mellitus Family history of malignant neoplasm Father Family history of elevated blood lipids Carcinoma of colon Family history of lung cancer Other No family history of cardiovascular disease Social History Social History Smoking packs per day: 0.5 Smoking cigarettes per day: 10.0 Years smoked: 60 Smoking pack-years: 30.00 Smoking status: Current every day smoker Tobacco type: cigarettes Alcohol intake: current Alcohol use details: occasional Substance use: never Substance use type: does not use Lack of Transportation: No Lack of Food: Never True Current Housing: I Have Housing Concerned About Future Housing: No Difficulty Paying Gas/Electric Bills: No Difficulty Paying for Meds: No Currently Unemployed: No Education: Master's Degree or Higher Difficulty w/ Childcare or Family Care: No Living arrangements: with family Occupation/Education: retired Gender identity (if verbalized by the patient): Male Sexual Orientation (if Verbalized by the Patient): Straight or Heterosexual Spiritual care concerns: No Agree to blood products: Yes Meds Home Medications and Allergies Home Medications Medication Instructions Recorded Confirmed Type aspirin 81 mg tablet,delayed 81 mg PO DAILY 11/25/19 11/20/23 History release finasteride 5 mg tablet 5 mg PO DAILY 11/25/19 11/20/23 History metoprolol succinate 25 mg 25 mg PO DAILY 11/25/19 11/20/23 History tablet,extended release 24 hr nitroglycerin 0.4 mg sublingual 0.4 mg sublingual Q5M PRN Chest 11/25/19 11/20/23 History tablet (Nitrostat) Pain rosuvastatin 20 mg tablet 20 mg PO DAILY 11/25/19
[2023-12-18 10:38] VITALS: BP 121/51; PULSE 73; RESP 19; O2SAT 100
[2023-12-18 10:48] VITALS: BP 141/66; PULSE 66; RESP 19; O2SAT 98
[2023-12-18 10:58] VITALS: BP 134/77; PULSE 70; RESP 25; O2SAT 99
== END 2023-12-18 11:07 | disposition home or self-care (01) ==
PROVIDERS: PCP Family Medicine; Visit Provider Internal Medicine Gastroenterology
PROC: 0DJD8ZZ Inspection of Lower Intestinal Tract, Via Natural or Artificial Opening Endoscopic (ICD-10-PCS; CPT 45378; principal; 2023-12-18 10:30)
DX: Z12.11 Encounter for screening for malignant neoplasm of colon (principal); K63.5 Polyp of colon; K57.30 Diverticulosis of large intestine without perforation or abscess without bleeding; I10 Essential (primary) hypertension; E78.2 Mixed hyperlipidemia; I25.10 Atherosclerotic heart disease of native coronary artery without angina pectoris; I73.9 Peripheral vascular disease, unspecified; Z85.46 Personal history of malignant neoplasm of prostate; F17.210 Nicotine dependence, cigarettes, uncomplicated; Z79.82 Long term (current) use of aspirin
CPT/HCPCS: 45380; 88305; J2704; J7120